=== PATIENT | female | born 1995 | race Caucasian/White ===

== ENCOUNTER 2018-03-03 16:37 | Emergency (ER) | payer SELFPAY ==
[~2018-03-03] VITALS: Ht 157.5 cm; Wt 72.0 kg
[2018-03-03 17:18] VITALS: BP 155/71
[2018-03-03] MEDS ORDERED: DEXAMETHASONE 4 MG/ML, 1ML PO ONE (17:30)
[2018-03-03] MEDS ORDERED: DEXAMETHASONE 4 MG/ML, 1ML IM ONE (18:00)
[2018-03-03] MEDS ORDERED: CEFTRIAXONE 1,000 MG IM ONE (18:00)
[2018-03-03] MEDS ORDERED: PLEASE ENTER HEIGHT AND WEIGHT MC SCH (18:00)
[2018-03-03] MEDS ORDERED: CEFTRIAXONE 1,000 MG ONE (18:06)
[2018-03-03] MEDS ORDERED: DEXAMETHASONE 4 MG/ML, 5ML ONE (18:06)
[2018-03-03] MEDS ORDERED: ACETAMINOPHEN 650 MG/20.3 ML UDC ONE (18:06)
[2018-03-03] MEDS ORDERED: ACETAMINOPHEN 650 MG/20.3 ML UDC PO ONE (18:30)
== END 2018-03-03 18:52 | disposition home or self-care (01) ==
LOC: ED 18:00
DX: J02.0 Streptococcal pharyngitis (principal)
CPT/HCPCS: 96372; 99283; J0696; J1100